=== PATIENT | female | born 1980 | race African-American/Black ===

== ENCOUNTER 2019-02-10 20:41 | Emergency (ER) | payer BC ==
[~2019-02-10] VITALS: Ht 157.5 cm; Wt 120.7 kg
--- NOTE | 2019-02-10 21:02 | NUR ---
Pt. ambulated into ED from [facility] w/ c/o HTN, asymptomatic, A/Ox4, denies SOB/PALACIOS/CP/F/C/N/V/D, RR even and unlabored, speaks in clear and complete sentences,
[2019-02-10] MEDS ORDERED: CLONIDINE HCL 0.1 MG TABLET ONE (21:08)
--- NOTE | 2019-02-10 21:10 | NUR ---
at bedside for MSE
--- NOTE | 2019-02-10 21:10 | NUR ---
Urine specimen collected and sent to lab,
[2019-02-10 21:12] VITALS: BP 163/131
[2019-02-10] MEDS ORDERED: CLONIDINE HCL 0.1 MG TABLET PO ONE (21:15)
[2019-02-10 21:28] LABS: *BILIRUBIN,URIN NEGATIVE (NEGATIVE); *BLOOD, URINE 1+ (NEGATIVE); *CLARITY,URINE CLEAR (CLEAR); *COLOR,URINE YELLOW (YELLOW); *KETONES,URINE TRACE (NEGATIVE); *UROBILINOGEN,URINE 0.2 E.U./dl (NORMAL); LEUKOCYTE ESTERASE ,URINE NEGATIVE (NEGATIVE); NITRITE, URINE NEGATIVE (NEGATIVE); UGLUCOSE NEGATIVE (NEGATIVE)
[2019-02-10 21:33] LABS: BACTERIA,URINE FEW /HPF (NONE SEEN); WBC,URINE 0-3 /HPF (0-3)
[2019-02-10 21:34] LABS: SQUAMOUS EPITHELIAL CELL,UR FEW /HPF (NONE SEEN)
--- NOTE | 2019-02-10 22:28 | NUR ---
Patient discharged to home in stable conditon. Written and verbal after care instructions given. Patient verbalizes understanding of instructions. Pt. d/c per MD order, d/c papers signed, all belongings w/ pt., ID band remove, ambulated off unit w/ steady gait, NAD
== END 2019-02-10 22:31 | disposition home or self-care (01) ==
LOC: ER 20:45
DX: I10 Essential (primary) hypertension (principal)
CPT/HCPCS: 93005; A4663